=== PATIENT | male | born 1995 | race Caucasian/White ===

== ENCOUNTER 2021-09-30 10:26 | Outpatient (CLI) | payer BC | END 2021-09-30 10:27 | disposition home or self-care (01) | LOC: CSHLAB 10:26 | PROVIDERS: ATTEND Internal Medicine Gastroenterology | DX: Z20.822 Contact with and (suspected) exposure to COVID-19 (principal); R10.9 Unspecified abdominal pain; K21.9 Gastro-esophageal reflux disease without esophagitis | CPT/HCPCS: 87811 ==

== ENCOUNTER 2021-10-03 07:51 | Day surgery (SDC) | payer BC ==
[2021-10-01 12:31] VITALS: BMI 23.6
[2021-10-03] MEDS ORDERED: Lidocaine 1% MPF 2 ML VIAL ONE (10:30)
== END 2021-10-03 12:00 | disposition home or self-care (01) ==
LOC: CSHSDC 07:51
PROVIDERS: ATTEND Internal Medicine Gastroenterology
PROC: 0DJ08ZZ Inspection of Upper Intestinal Tract, Via Natural or Artificial Opening Endoscopic (ICD-10-PCS; principal; 2021-10-03)
DX: K21.9 Gastro-esophageal reflux disease without esophagitis (principal); K44.9 Diaphragmatic hernia without obstruction or gangrene; R10.9 Unspecified abdominal pain
CPT/HCPCS: 76700; J2704

== ENCOUNTER 2021-10-03 08:05 | Outpatient (CLI) | payer BC ==
[2021-10-03] MEDS ORDERED: Lidocaine 1% PF 5 ML VIAL ONE (10:53)
[2021-10-03] MEDS ORDERED: PROPOFOL 40 ML ONE (10:53)
[2021-10-03] MEDS ORDERED: PROPOFOL 20 ML ONE (11:01)
== END 2021-10-03 08:06 | disposition home or self-care (01) ==
LOC: CSHULT 08:05
PROVIDERS: ATTEND Internal Medicine Gastroenterology
DX: R10.9 Unspecified abdominal pain (principal); K21.9 Gastro-esophageal reflux disease without esophagitis
CPT/HCPCS: 76700; J2704